=== PATIENT | female | born 1965 | race Caucasian/White ===

== ENCOUNTER 2022-04-21 11:36 | Outpatient (CLI) | payer OTHER, SELFPAY ==
[2022-04-21 12:58] LABS: Albumin* 4.4 g/dL (3.3-5.0); Chloride* 102 mmol/L (96-114)
[2022-04-21 12:59] LABS: Potassium* 4.8 mmol/L (3.6-5.1); Sodium* 139 mmol/L (135-149)
[2022-04-21 13:01] LABS: Alanine Aminotransferase* 21 U/L (4-35); Alkaline Phosphatase* 116 U/L (40-150); Aspartate Amino Transferase* 28 U/L (12-35); Bilirubin Total* 0.5 mg/dL (0.1-1.5); Blood Urea Nitrogen* 24 mg/dL (7-30); Carbon Dioxide* 28 mmol/L (20-32); Cholesterol* 227 mg/dL (90-199); Creatinine* 0.9 mg/dL (0.5-1.5); Estimated Glomerular Filt Rate 75 ml/min; Glucose* 106 mg/dL (60-115)
[2022-04-21 13:02] LABS: Calcium* 9.1 mg/dL (8.4-10.6); HDL Cholesterol* 45 mg/dL (>=50); LDL Cholesterol Calculated 164 mg/dL (<100); Triglycerides* 91 mg/dL (40-149)
== END 2022-04-21 11:37 | disposition home or self-care (01) ==
PROVIDERS: PCP Physician Assistant Medical; Visit Provider Physician Assistant Medical
DX: E78.5 Hyperlipidemia, unspecified (principal)
CPT/HCPCS: 80053; 80061; 84443

== ENCOUNTER 2022-10-19 15:34 | Outpatient (CLI) | payer OTHER, SELFPAY ==
--- NOTE | 2022-10-19 15:40 | CRLHL7_ITS ---
For Patients: As a result of the Century Cures Act, medical imaging exams and procedure reports are released immediately into your electronic medical record. You may view this report before your referring provider. If you have questions, please contact your health care provider. BILATERAL SCREENING MAMMOGRAM WITH COMPUTER-AIDED DETECTION AND TOMOSYNTHESIS TECHNIQUE: CC and MLO views were obtained. These mammographic images have been obtained using full-field digital technique. These mammographic images were interpreted with the benefit of computer-aided detection. Breast Tomosynthesis was used in this interpretation. COMPARISON FILM: 10/12/21, 10/06/20, 09/29/19. FINDINGS: There are scattered areas of fibroglandular density IMPRESSION: There is no radiographic evidence for malignancy. ASSESSMENT: BI-RADS Category 1: Negative RECOMMENDATION: Routine screening mammogram in 1 year. A lay language report of this examination will be provided to the patient. Luciano Greco M.D. Diagnostic Radiologist [email or web address] ROBIN/Dictated by: Luciano Greco MD @ 10/20/2022 12:35:00 PM (Electronically Signed)
== END 2022-10-19 15:35 | disposition home or self-care (01) ==
LOC: MAMMO 15:35
PROVIDERS: PCP Physician Assistant Medical; Visit Provider Physician Assistant Medical
DX: Z12.31 Encounter for screening mammogram for malignant neoplasm of breast (principal)
CPT/HCPCS: 77063; 77067

== ENCOUNTER 2023-03-21 13:57 | Outpatient (CLI) | payer OTHER, SELFPAY ==
--- OUTSIDE RECORDS SUMMARY | 2023-03-21 13:59 | XMS_ITS | Continuity of Care Document ---
Author Name Unknown Organization [facility] Address [address] [place] [phone] Phone Care Team Providers Care Card Hand Name Role Phone Will Miquel VILLASEÑOR Unavailable Unavailabl e Procedures Procedure Date OFFICE CONSULTATION Advance Directives Directive Yes / No Effective Date File Name No Information Encounters Encounter Description Practice Location Reason(s) For Visit Diagnoses Date Provider Providers Copied on Encounter [facility], [address] [place] [address], [id number] , [place] tel:[phone] [facility] No Information 2 Will Miquel. [address] [place], [place], [id number] , [place]. tel:[phone] OFFICE CONSULTATION [facility], [address] [place], [place], [id number] , [place] tel:[phone] [facility] left foot pain (chief complaint) Pain in left footOther chronic painOther acquired deformities of left footAcquired hallux valgus of left footOsteoarthritis Pain in right hip [facility], [address], [place], [address], [place]. tel:[phone] Referring Provider: Nicolas [facility] , [place], [address]. tel:[phone] Family History Family Member Type Diagnosis Age At Onset No Information Payers Payer name Insurance type Covered republican ID Authoriza tion(s) [employer] Admin Srvs Claims CI [id number] Social History Type Description Quantity Date Captured Comments Sex Female Smoking Status No Information Chief Complaint And Reason For Visit No Information Reason For Referral Reason For Referral No Information History Of Present Illness Encounter Date Complaint History Of Prese nt Illness left foot pain (comments) Noble james is here for initial consult for L foot pain, self-referred. Her pain began in July 2018 s/p L subtalar joint arthrodesis and has particularly worsened over the last 3 weeks. Pain is located primarily on the heel of her left foot. Details how she cannot walk flat-footed, and supinates to compensate for the pain. Compensation is also causing her to have pain in her R foot and R hip which radiates to her lateral R thigh. She has also developed a fascia on the bottom of her foot which she believes is causing her increased pain. 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 She is actively enrolled in PT at [facility] which is helpful for relieving some of her pain. She has also trialed acupuncture, cupping, and massage which is somewhat helpful but does not alleviate the pain. She has had injections in the top of her L foot which provided good, short-term relief. Most recent imaging can be found at [facility] and [place]. Has taken Ibuprofen and Naproxen for additional pain relief. Today Tracey is interested in any recommended treatment adjuncts and would like [facility] to assume management of pain care. left foot pain Onset: 1 to 2 ye ars ago. Severity level is 7. It occurs constantly. Location: left foot. The pain is aching. The pain is aggravated by climbing (and descending) stairs, walking and standing. The pain is relieved by ice, rest and stretching. Functional Status Date Functional Assessmen t No Information Instructions Date Instruction Additional Infor mation No Information Assessments Type Assessment Date No Information Patient Care Teams Name Effective Dates (start - stop) Status Members No Information
--- OUTSIDE RECORDS SUMMARY | 2023-03-21 14:00 | XMS_ITS | Patient Health Record ---
Author Name Unknown Organization [facility] Address [address] [place] [address] Care Team Providers Care Complaint Analyst Name Role Phone No Primary, Care Primary Care Provider Unavailab Bear Morton Unavailable [phone] You Agosto Unavailable Unavailable ALLERGIES Allergen (clinical drug ingredient) Drug/Non Drug Allergy documented on EMR Reaction Allergy Type Onset Date Status seasonal (uncoded) Unknown Allergy A ctive REASON FOR REFERRAL No Information MEDICATIONS Medication SIG (Take, Route, Fr equency, Duration) Notes Start Date End Date Status Doxycycline Hyclate Active Medrol 4 MG as directed Orally 1 pack for 6 days 11/01/2021 Active SOCIAL HISTORY Tobacco Use: Social History Observation Description Date Details (start date - stop date) Never Smoker NA - NA Sex Assigned At : Social History Observation Description Sex Assigned At Unknown Tobacco Use/Smoking: Question Answer Notes Are you a nonsmoker Alcohol Screen Question Answer Notes Did you have a drink containing alcohol in the p ast year? 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) Active confirmed Muscle wasting disorder (08643887) Problem Segmental and somatic dysfunction of lumbar region (M99.03) Active confirmed Somatic dysfunction of lumbar region (121731974) Problem Radiculopathy, lumbosacral region (M54.17) Active confirmed Lumbosacral radiculopathy (3982791) PLAN OF TREATMENT No Information Insurance Providers Payer Name Payer Address Payer Phone Subscriber Number Group Number Insured Name Patient Relationship to Insured Coverage Start Date Coverage End Date PreferredOn e Administrat cristiana (PKA) [address] [place], [place] [id number] JenniferTracey whitt Self - patient is the insured 0 [facility] [address] [place] Ad[place] [phone] [id number] Tracey Rodriguez Self - patient is the insured 9 9 MEDICAL (GENERAL) HISTORY Medical History History ICD Code Headaches Surgical History Surgery Date(Month/Year) Lt foot/ankle 07/2018 Lt foot/ankle (redone) 05/2019 Lt Ankle tendon repair 06/2019 Lt hardware removal 01/2020 Hospitalization History Reason Date(Month/Year) Surgical reasons
== END 2023-03-21 13:58 | disposition home or self-care (01) ==
PROVIDERS: PCP Physician Assistant Medical; Visit Provider Physician Assistant Medical
DX: Z00.00 Encounter for general adult medical examination without abnormal findings (principal); M25.50 Pain in unspecified joint; E78.5 Hyperlipidemia, unspecified; E55.9 Vitamin D deficiency, unspecified; N95.2 Postmenopausal atrophic vaginitis
CPT/HCPCS: 80053; 80061; 84443; 86200; 86431

== ENCOUNTER 2023-10-25 07:58 | Outpatient (CLI) | payer OTHER, SELFPAY ==
--- NOTE | 2023-10-25 08:15 | MM_ITS ---
Patient: PANCHO ANGELA Facility:?[facility] Patient ID:?[id number] Site Patient ID:?[id number] Site :?1965 Study:?XRay-Breast Bilateral 3D W/CAD-10/25/2023 8:29:39 AM Ordering Physician:Isabel Final Report: BILATERAL SCREENING MAMMOGRAM WITH COMPUTER-AIDED DETECTION AND TOMOSYNTHESIS TECHNIQUE: CC and MLO views were obtained. These mammographic images have been obtained using full-field digital technique. These mammographic images were interpreted with the benefit of computer-aided detection. Breast Tomosynthesis was used in this interpretation. COMPARISON FILM: 10/19/22, 10/12/21, 10/06/20. FINDINGS: There are scattered areas of fibroglandular density. IMPRESSION: There is no radiographic evidence for malignancy. ASSESSMENT: BI-RADS Category 1: Negative RECOMMENDATION: Routine screening mammogram in 1 year. A lay language report of this examination will be provided to the patient. Luciano Greco M.D. Diagnostic Radiologist [email or web address] DSM/sp R& Transcribed: 6:21 p.m. SP/Dictated by: Luciano Greco MD @ 10/25/2023 9:44:00 AM Signed by:?Luciano Greco MD @10/26/2023 5:31:15 AM (Electronic Signature)
== END 2023-10-25 07:59 | disposition home or self-care (01) ==
LOC: MAMMO 07:59
PROVIDERS: PCP Physician Assistant Medical; Visit Provider Physician Assistant Medical
DX: Z12.31 Encounter for screening mammogram for malignant neoplasm of breast (principal)
CPT/HCPCS: 77063; 77067

== ENCOUNTER 2024-05-29 07:34 | Outpatient (CLI) | payer OTHER, SELFPAY ==
--- OUTSIDE RECORDS SUMMARY | 2024-06-01 04:13 | XMS_ITS | Continuity of Care Document ---
Author Organization [facility] Address [address] [place] [phone] Phone Care Team Providers Care Rig Manager Name Role Phone Will Miquel VILLASEÑOR Unavailable Unavailabl e Procedures Procedure Date OFFICE CONSULTATION Advance Directives Directive Yes / No Effective Date File Name No Information Encounters Encounter Description Practice Location Reason(s) For Visit Diagnoses Date Provider Providers Copied on Encounter [facility], [address] [place] [address], [id number] , [place] [phone] [facility] No Information 2 Will Miquel. [address] [place], [place], [id number] , [place]. [phone] OFFICE CONSULTATION [facility], [address] [place], [place], [id number] , [place] [phone] [facility] left foot pain (chief complaint) Pain in left footOther chronic painOther acquired deformities of left footAcquired hallux valgus of left footOsteoarthritis Pain in right hip [facility], [address], [place], [address], [place]. tel:[phone] Referring Provider: [facility] , [place], [address]. tel:[phone] Family History Family Member Type Diagnosis Age At Onset No Information Payers Payer name Insurance type Covered green party ID Authoriza tion(s) [employer] Admin Srvs Claims CI [id number] Social History Type Description Quantity Date Captured Comments Sex Female Smoking Status No Information Chief Complaint And Reason For Visit No Information Reason For Referral Reason For Referral No Information History Of Present Illness Encounter Date Complaint History Of Jamshid joiner Illness left foot pain Onset: 1 to 2 ye ars ago. Severity level is 7. It occurs constantly. Location: left foot. The pain is aching. The pain is aggravated by climbing (and descending) stairs, walking and standing. The pain is relieved by ice, rest and stretching. left foot pain (comments) Noble james is [...] She is actively enrolled in PT at [facility] which is helpful for relieving some of her pain. She has also trialed acupuncture, cupping, and massage which is somewhat helpful but does not alleviate the pain. She has had injections in the top of her L foot which provided good, short-term relief. Most recent imaging can be found at [facility] and [place]. Has taken Ibuprofen and Naproxen for additional pain relief. Today Tracey is interested in any recommended treatment adjuncts and would like [facility] to assume management of pain care. Functional Status Date Functional Assessmen t No Information Instructions Date Instruction Additional Infor mation No Information Assessments Type Assessment Date No Information Patient Care Teams Name Effective Dates (start - stop) Status Members No Information
--- OUTSIDE RECORDS SUMMARY | 2024-06-01 04:13 | XMS_ITS | Clinical Summary ---
Author Organization [facility] Address [place], [place] [address] Care Team Providers Care News Clerk Name Role Phone Zach Gracia PA-C Primary Care Provider [phone] Allergies No known active allergies Medications Medication Sig Dispensed Refills Start Date End Date Status Magnesium 30 mg tablet Take 30 mg by mouth once daily. 0 Active cholecalciferol, Vitamin D3, (VITAMIN D-3) 2,000 unit tablet Take 2,000 Units by mouth once daily. 0 Active loratadine (CLARITIN) 10 mg tablet Take 1 tablet by mouth once daily. 0 01/08/2020 Active vitamin e 400 unit capsule 0 Active Vitamin A 8,000 unit capsule 0 Active zinc 50 mg tablet 0 Active turmeric 400 mg cap Take by mouth. 0 01/08/2020 A ctive calcium carbonate (CALCIUM 600) 600 mg calcium (1,500 mg) tablet Take 600 mg by mouth once daily. 0 Active estrogens, conjugated (PREMARIN) 0.625 mg/gram vaginal cream Insert 0.5 g into the vagina at bedtime. Twice seekly Active cyclobenzaprine (FLEXERIL) 10 mg tabletIndications:Malia n from implanted hardware, subsequent encounter Take one-half tablet by mouth every 8 hours if needed for Muscle Spasm. 12 tablet 01/14/2020 Active oxyCODONE (ROXICODONE) 5 mg immediate release tabletIndications:Malia n from implanted hardware, subsequent encounter Take 1-2 tablets by mouth every 4 hours if needed for Pain 16 tablet 01/14/2020 Active ondansetron (ZOFRAN ODT) 4 mg disintegrating tabletIndications:Malia n from implanted hardware, subsequent encounter Place 1 tablet on the tongue every 8 hours if needed for Nausea/Vomiting. 8 tablet 01/14/2020 Active gabapentin (NEURONTIN) 300 mg capsuleIndications:Pa in from implanted hardware, subsequent encounter Take 1 capsule by mouth 3 times daily. 90 capsule 01/14/2020 Active CrutchIndications:Malia n from implanted hardware, subsequent encounter For home use. 1 Device 01/14/2020 Active miscellaneous medical supply miscIndications:Arthr itis of left foot As directed. 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 Family History Medical History Relation Name Comments Genetic Other 1 Cataracts Grand mother Genetic Other 2 Cataracts Grand mother~arthritis Relation Name Status Comments Other 1 Other 2 Social History Tobacco Use Types Packs/Day Years Used Date Smoking Tobacco: Never Smokeless Tobacco: Never Alcohol Use Standard Drinks/Week Comments Not Currently 0 (1 standard drink = 0.6 oz pur e alcohol) Sex and Gender Information Value Date Recorded Sex Assigned at Not on file Gender Identity Not on file Sexual Orientation Not on file Obstetrics History Last Filed Vital Signs Vital Sign Reading Time Taken Comments Blood Pressure 136/76 01/14/2020 1:06 PM CDT Pulse 78 01/14/2020 1:06 PM CDT Temperature 36.7 ??C (98 ??F) 01/14/2020 1:06 PM CDT Respiratory Rate 16 01/14/2020 1:06 PM CDT Oxygen Saturation 99% 01/14/2020 1:06 PM CDT Inhaled Oxygen Concentration - - Weight 88.2 kg (194 lb 7.1 oz) 01/14/2020 7:44 A M CDT Height 175.3 cm (5' 9) 01/14/2020 7:44 AM CDT Body Mass Index 28.71 01/14/2020 7:44 AM CDT Plan of Treatment Health Maintenance Due Date Last Done Comments Tdap 1976 Depression screening for age 12+ 1977 HIV for age 15-65 1980 BMI (ht and wt on same day) for age 18+ 1983 Hepatitis C screening for age 18-79 1983 Tetanus booster 1985 Colonoscopy through age 75 2010 Lipids for age 45-75 2010 Mammogram for age 45-75 2010 Zoster (shingles) series for age 50+ (1 of 2) 2015 Pap test for age 21-65 01/29/2024 1, 01/28/2021, 09/28/2015, Additional history exists COVID-19 vaccine series (2023- season) 2024 Influenza for age 50-64 04/13/2024 Pneumococcal series for age 6-64 Aged Out No longer eligible based on patient's age to complete this topic Medical Devices Implanted Type Area Manager [employer]able [employer] Device Identifier Shelf Expiration Date Model / Serial / Lot Tissue Matrix 4x4cm Allowrap Ds - [id number] Implanted:Qty: 1 on 01/14/2020 by Travis Reyes MD at [facility] Left: Foot [facility] 07/11/2021# / / [id number] Procedures Procedure Name Priority Date/Time Associated Diagnosis Comments ACCESS SPEC THIN PREP PAP SCREEN IMAGED Routine 01/28/2021 2:30 PM CDT from Last 3 Months or Most Recently Relevant to Health Maintenance Results * ACCESS SPEC THIN PREP PAP SCREEN IMAGED (01/28/2021 2:30 PM CDT) Case Report Gynecologic Cytology Report ? Case: [id number] ? Authorizing Provider: ??Zach Gracia PA-C ? Collected: ? 01/28/2021 1430 ? Ordering Location: ? [facility] ?Received: ?02/01/2021 0736 ? First Screen: ?Mackenzie Figueroa ? Specimen: ?ACCESS SPEC ThinPrep Vial Screening, Cervical/Vaginal ? 02/09/2021 11:28 AM T [facility] EN[facility]AL [facility] INTERPRETATION/ RESULT NEGATIVE FOR INTRAEPITHELIAL LESION OR MALIGNANCY (NIL) (none) 02/09/2021 11:[address] [facility] IMEN ADEQUACY Satisfactory for evaluation No endocervical component seen 02/09/2021 11:28 AM [facility] ENTR[facility] HPV REQUEST HPV and PAP 02/09/2021 11:28 AM [facility] Last Pap Date 09/28/2015 02/09/2021 11:28 AM [facility] Last Pap Result 11:28 AM [facility] Comment:Neg/Neg Menstrual Status 02/09/2021 11:28 AM [facility] Comment:Menopause Additional Information Premarin Cream 02/09/2021 11:28 AM [facility] Comment: Interpreted at [facility] [employer] [facility], Central Laboratory - [address], [place] [address] Automated Review Successful 02/09/2021 11:28 AM CDT [facility] Comment:Specimen processed s uccessfully by automated wire twister device, AlphaBoostPrep Imaging System, [employer] ANCILLARY TESTING ACCESS SPEC HPV Ordered, Please see separate report 02/09/2021 11:28 AM CDT [facility] [employer] [facility] Note The pap test is a screening technique, not a diagnostic procedure. It is used primarily to screen for squamous cancers and precursor lesions. Published studies have shown that it is subject to both false negative and false positive results. The pap test should not be used as the sole means to diagnose or exclude pre-malignant and malignant lesions. 02/09/2021 11:28 AM CDT [facility] Other (Cervical/Vagina l) 01/28/2021 2:30 PM CDT 02/01/2021 7:36 AM CDT Zach Gracia PA-C PATHOLOGY[facility]TOLOG[facility] [address] [place] [address], [place] from Last 3 Months or Most Recently Relevant to Health Maintenance Care Teams News Clerk Relationship Specialty Start Date End Date Zach Gracia PA-C [address] [place] [address] PCP - General Physician Wire Insulator 09/29/19
--- OUTSIDE RECORDS SUMMARY | 2024-06-01 04:14 | XMS_ITS | Clinical Summary ---
Author Organization [facility] Address [address], [place] [address] Care Team Providers Care Performance Improvement Specialist Name Role Phone Katey Humphreys MD Primary Care Provider [phone] Source Comments You are receiving this document as you are listed as the primary care provider,follow-up provider, or the patient has been referred to you for consultation.This is in compliance with the Medicare andGenesis Hospitalcaid EHR Incentive Program,which states Providers who transition their patient to another setting of careor provider of care or refers their patient to another provider of care shouldprovide summary care record for each transition of care or referral. TPACK Allergies No known active allergies Medications Medication Sig Dispensed Refills Start Date End Date Status Estradiol-Norethindron e Acet (AKA ACTIVELLA) 1-0.5 MG tablet Take 1 tablet by mouth daily (every 24 hours). 12/07/2015 Active ketoprofen (AKA ORUDIS) 75 MG capsule Take 75 mg by mouth 3 times daily as needed for Pain (75-150mg TID PRN). 12/07/2015 Active SUMAtriptan (AKA IMITREX) 100 MG tablet Take 100 mg by mouth as needed for Migraine. May repeat after 2 hours if needed. Max 2 tabs/24 hours. Max 9 days/month 12/07/2015 Active magnesium oxide (EQL MAGNESIUM) 250 MG tablet Take by mouth. 12/07/2015 Active cholecalciferol (AKA VITAMIN D3) 2000 UNITS tablet Take by mouth. 12/07/2015 Active vitamin E (KP VITAMIN E) 100 UNITS capsule Take by mouth. 12/07/2015 Active aspirin EC 81 MG enteric coated tabletIndications:81mg chew 2x week Take 81 mg by mouth daily (every 24 hours). Indications: 81mg chew 2x week 12/07/2015 Active Calcium Citrate-Vitamin D (CALCITRATE/VITAMIN D OR) Take by mouth. 12/07/2015 Active diclofenac (VOLTAREN) 1 % gel Apply 2 g to skin 4 times a day. 100 g 3 10/01/2017 Active Active Problems Problem Noted Date Diagnosed Date Multiple thyroid nodules 11/01/2017 Vertigo 12/07/2015 H/O section 12/07/2015 Lumbar degenerative disc disease 12/07/2015 CALEB (obstructive sleep apnea) 12/07/2015 Endometriosis 12/07/2015 Basal cell carcinoma 12/07/2015 Migraine without status migrainosus, not intract able 12/07/2015 Pes planus of both feet 12/07/2015 Chondromalacia of patella 12/07/2015 Plantar fasciitis 12/07/2015 Family History Medical History Relation Name Comments Stroke Father Relation Name Status Comments Father Social History Tobacco Use Types Packs/Day Years Used Date Smoking Tobacco: Never Smokeless Tobacco: Never Sex and Gender Information Value Date Recorded Sex Assigned at Not on file Gender Identity Not on file Sexual Orientation Not on file Last Filed Vital Signs Vital Sign Reading Time Taken Comments Blood Pressure 115/65 11/01/2017 2:01 PM CDT Pulse 92 11/01/2017 2:01 PM CDT Temperature - - Respiratory Rate - - Oxygen Saturation - - Inhaled Oxygen Concentration - - Weight 80.3 kg (177 lb) 10/21/2018 9:02 AM CDT Height 157.5 cm (5' 2) 10/21/2018 9:02 AM CDT Body Mass Index 32.37 10/21/2018 9:02 AM CDT Plan of Treatment Health Maintenance Due Date Last Done Comments Colon Cancer Screening Plan Due 1965 Hep C Screening (Preventive Services) 1965 HIV Screening (Preventive Services) 1981 Adult Preventive Visit 1983 HepB (1) 1984 Cholesterol 2010 Cervical Cancer Screening Due 08/22/2011 08/21/2011 Mammogram 08/24/2012 08/24/2011 Zoster/Shingles (1 of 2) 2015 COVID-19 Vaccine ( season) 2024 10/22/2020, 09/24/2020 Influenza (#1) 2024 06/07/2020, 04/14, 07/15/2018, Additional history exists DTaP/Tdap/Td (3 - Tdap) 09/07/2025 09/07/2015, 07/18 HepA Aged Out 01/16/2013, 07/14, 07/09/2012 No longer eligible based on patient's age to complete this topic Hib Aged Out No longer eligi ble based on patient's age to complete this topic IPV (Polio) Aged Out No longer eligi ble based on patient's age to complete this topic RSV Aged Out No longer eligi ble based on patient's age to complete this topic MCV4 Aged Out No longer eligi ble based on patient's age to complete this topic Pneumococcal Aged Out No longer eligi ble based on patient's age to complete this topic Care Teams Performance Improvement Specialist Relationship Specialty Start Date End Date [place]y Humphreys [place] [address] [place] [address] PCP - General Family Practice 11/01/17
--- OUTSIDE RECORDS SUMMARY | 2024-06-01 04:14 | XMS_ITS | Patient Health Record ---
Author Organization [facility] Address [address] [facility] [place] [address] Care Team Providers Care Senior Windows Systems Administrator Name Role Phone No Primary, Care Primary Care Provider Unavailab Bear Morton Unavailable [phone] You Agosto Unavailable Unavailable Allergies Allergen (clinical drug ingredient) Drug/Non Drug Allergy documented on EMR Reaction Allergy Type Onset Date Status seasonal (uncoded) Unknown Allergy A ctive Reason For Referral No Information Medications Medication SIG (Take, Route, Fr equency, Duration) Notes Start Date End Date Status Doxycycline Hyclate Active Medrol 4 MG as directed Orally 1 pack for 6 days 11/01/2021 Active Social History Tobacco Use: Social History Observation Description Date Details (start date - stop date) Never Smoker NA - NA Tobacco Use/Smoking: Question Answer Notes Are you a nonsmoker Alcohol Screen Question Answer Notes Did you have a drink containing alcohol in the p ast year? 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) Active confirmed Problem Somatic dysfunction of lumbar region (992973789) Segmental and somatic dysfunction of lumbar region (M99.03) Active confirmed Problem Lumbosacral radiculopathy (6325927) Radiculopathy, lumbosacral region (M54.17) Active confirmed Plan Of Treatment No Information Insurance Providers Payer Name Payer Address Payer Phone Subscriber Number Group Number Insured Name Patient Relationship to Insured Coverage Start Date Coverage End Date Preferred[employer] e Administrat cristiana (PKA) [address] [place], [place] [id number] Tracey Rodriguez Self - patient is the insured 0 [facility] [address] [place] [phone] [id number] Tracey Rodriguez Self - patient is the insured 9 9 Medical (General) History Medical History History ICD Code Headaches Surgical History Surgery Date(Month/Year) Lt hardware removal 01/2020 Lt Ankle tendon repair 06/2019 Lt foot/ankle (redone) 05/2019 Lt foot/ankle 07/2018 Hospitalization History Reason Date(Month/Year) Surgical reasons
== END 2024-05-29 07:35 | disposition home or self-care (01) ==
LOC: NFLDREF 06-01 04:12
PROVIDERS: PCP Physician Assistant Medical; Referring Provider Physician Assistant Medical; Visit Provider Physician Assistant Medical
DX: Z00.00 Encounter for general adult medical examination without abnormal findings (principal); E78.2 Mixed hyperlipidemia; E55.9 Vitamin D deficiency, unspecified
CPT/HCPCS: 80048; 80061

== ENCOUNTER 2024-11-11 18:14 | Outpatient (CLI) | payer OTHER, SELFPAY ==
--- NOTE | 2024-11-11 18:40 | CRLHL7_ITS ---
For Patients: As a result of the Century Cures Act, medical imaging exams and procedure reports are released immediately into your electronic medical record. You may view this report before your referring provider. If you have questions, please contact your health care provider. BILATERAL SCREENING MAMMOGRAM WITH COMPUTER-AIDED DETECTION AND TOMOSYNTHESIS TECHNIQUE: CC and MLO views were obtained. These mammographic images have been obtained using full-field digital technique. These mammographic images were interpreted with the benefit of computer-aided detection. Breast Tomosynthesis was used in this interpretation. COMPARISON FILM: 10/25/23, 10/19/22, 10/12/21. FINDINGS: The breasts are almost entirely fatty. IMPRESSION: There is no radiographic evidence for malignancy. ASSESSMENT: BI-RADS Category 1: Negative RECOMMENDATION: Routine screening mammogram in 1 year. A lay language report of this examination will be provided to the patient. Luciano Greco M.D. Diagnostic Radiologist [email or web address] SP/Dictated by: Luciano Greco MD @ 11/12/2024 12:12:00 PM (Electronically Signed)
== END 2024-11-11 18:15 | disposition home or self-care (01) ==
LOC: MAMMO 18:15
PROVIDERS: PCP Physician Assistant Medical; Visit Provider Physician Assistant Medical
DX: Z12.31 Encounter for screening mammogram for malignant neoplasm of breast (principal)
CPT/HCPCS: 77063; 77067

== ENCOUNTER 2024-12-15 15:08 | Outpatient (CLI) | payer OTHER, SELFPAY | END 2024-12-15 15:09 | disposition home or self-care (01) | LOC: NFLDREF 12-18 23:35 | PROVIDERS: PCP Physician Assistant Medical; Referring Provider Physician Assistant Medical; Visit Provider Physician Assistant Medical | DX: K90.41 Non-celiac gluten sensitivity (principal) | CPT/HCPCS: 83516 ==

== ENCOUNTER 2025-05-22 07:34 | Outpatient (CLI) | payer OTHER, SELFPAY | END 2025-05-22 07:35 | disposition home or self-care (01) | LOC: NFLDREF 05-25 15:52 | PROVIDERS: PCP Physician Assistant Medical; Referring Provider Physician Assistant Medical; Visit Provider Physician Assistant Medical | DX: E55.9 Vitamin D deficiency, unspecified (principal); E78.2 Mixed hyperlipidemia; Z00.00 Encounter for general adult medical examination without abnormal findings | CPT/HCPCS: 80053; 80061; 82306; 84443 ==